=== PATIENT | male | born 1985 | race Caucasian/White ===

== ENCOUNTER 2017-07-12 08:46 | Inpatient (IN) ==
[2017-07-12] MEDS ORDERED: 0.9 % Sodium Chloride 1,000 ML IVC ONE (09:03)
[2017-07-12] MEDS ORDERED: WATER IVPB ONE (09:03)
[2017-07-12] MEDS ORDERED: PROCAINAMIDE IVPB ONE (09:03)
[2017-07-12] MEDS ORDERED: D5 IVPB ONE (09:03)
[2017-07-12 09:18] LABS: Basophils % 0.4 %; Eosinophils # 0.3 K/mcL (0.0-0.6); Eosinophils % 3.7 %; Hematocrit 52.7 % (37.5-50.1); Hemoglobin 19.1 g/dL (12.9-16.9); Immature Granulocytes % 0.1 % (0-4); Lymphocytes # 2.6 K/mcL (0.6-4.6); Lymphocytes % 28.5 %; Mean Corpuscular HGB Conc 36.2 g/dL (31.6-35.5); Mean Corpuscular Hemoglobin 31.6 pg (28.0-33.3); Mean Corpuscular Volume 87.3 fL (83.0-100.0); Mean Platelet Volume 11.1 fL (9.4-12.4); Neutrophils # 5.2 K/mcL (1.6-8.9); Platelet Count 228 K/mcL (140-400); Red Blood Count 6.04 M/mcL (4.19-5.50); Red Cell Distribution Width 12.2 % (11.5-14.5); Segmented Neutrophils % 56.3 %
--- NOTE | 2017-07-12 09:23 | Emergency Department Note ---
START Narrative - START START: I examined this patient and my medical decision-making was reviewed with the Resident Physician. I agree with the documented findings, disposition and treatment plan as described except to the extent set forth below. 31 year old male with HX of meth abuse in the past and chest pain that started at 0200 this morning that woke him up and when he tried to use the bathroom he had a near syncopal episode and then as he was walking back to bed he had a syncopal episode and landed on the bed. Patinet denies caffiene use or any recent ilnnes. We have spoke with Dr. Andrade who recommended procainamine treatment if we are concerned about an underlying WPW in addition to lopressor therapy. AFter review of the old ekg it which was NSR it doesnt appear to have a delta wave in 2016. She does not recommend amniodarone therapy at this time. IF those therapies do not help then we will start cardizem. CTA to rule out PE. We will admit to medicine.
[2017-07-12 09:24] LABS: Prothrombin Time 10.5 Seconds (9.4-12.1)
[2017-07-12 09:27] LABS: Activated Partial Thrombo Time 29.3 Seconds (26.0-36.0)
[2017-07-12 09:34] LABS: BUN/Creatinine Ratio 12 (6-26); Blood Urea Nitrogen 9 mg/dL (8-26); Calcium 9.2 mg/dL (8.6-10.8); Carbon Dioxide 21 mEq/L (19-29); Chloride 110 mEq/L (98-109); Glucose 108 mg/dL (70-99); Magnesium 2.1 mg/dL (1.6-2.6); Osmolality,Calculated 285 (280-300); Potassium 4.4 mEq/L (3.5-4.5); Sodium 138 mEq/L (136-145); eGFR For African Americans > 60 (> 60); eGFR For Non-African Americans > 60 (> 60)
[2017-07-12 09:39] LABS: D-Dimer < 215 ng/mLFEU (0-500)
--- NOTE | 2017-07-12 09:44 | Emergency Department Note ---
Disposition Clinical Impression: Atrial fibrillation Disposition: Admitted As Inpatient Condition: Good Referrals: Jasmin Zaragoza, INCUBATOR OPERATOR [Primary Care Provider] - Forms: ED Satisfaction Letter Time of Disposition: 10:25 Chest Pain HPI - General Chief Complaint: ED Chest Pain Stated Complaint: Chest pains Time Seen by Provider: 07/12/17 08:57 Source: patient Mode of arrival: ambulatory Limitations: no limitations Vital Signs Reviewed: Yes Nursing Notes Reviewed: Yes - History of Present Illness HPI Narrative: Patient presents to the ED with the chief complaint of chest pain and palpitations. Patient woke up at 2:30 this morning and went to urinate. He states that when he got done urinating. He started feeling very lightheaded like he was going to pass out and did have a syncopal episode. He woke up he was having severe palpitations and left precordial chest discomfort. States he felt short of breath, diaphoretic and nauseated. Palpitations are coming and going and his symptoms are relieved when he is not having palpitations. States he feels like he is skipping beats. No pain or swelling in his legs, nistory DVT, PE, malignancy or exogenous estrogen use. No previous history of A. fib or coronary artery disease. Does have a previous drug use, history of methamphetamine. Denies any currently Severity scale (1-10): 10 - Related Data Home Medications Medication Instructions Recorded Confirmed Pantoprazole Sodium [Protonix] 40 mg PO DAILY 07/12/17 07/12/17 Allergies Allergy/AdvReac Type Severity Reaction Status Date / Time No Known Allergies Allergy Verified 06/13/15 22:46 All systems ED: reviewed and negative except as stated. Constitutional: Denies: fever Cardiovascular: Reports: chest pain, palpitations, syncope Respiratory: Reports: dyspnea Gastrointestinal: Reports: nausea. Denies: vomiting Musculoskeletal: Denies: back pain Neurological: Denies: headache Chest Pain PMH - Past Medical History Medical history: Reports: hypertension Surgical history: Reports: other Psychiatric history: Reports: other - Social History Smoking Status: Current every day smoker Alcohol use: Reports: occasionally Drug use: Reports: methamphetamine Physical Exam - General Limitations: no limitations General appearance: alert, anxious - Head Head exam: atraumatic, normocephalic, normal inspection - Eye Eye exam: Present: normal appearance, PERRL, EOMI - ENT ENT exam: normal exam, normal oropharynx, mucous membranes moist - Neck Neck exam: Present: normal inspection, full ROM, trachea midline. Absent: tenderness - Chest Chest inspection: Present: normal inspection, symmetric chest wall rise - Respiratory Respiratory exam: Present: normal lung sounds bilaterally - Cardiovascular Cardiovascular exam: Present: tachycardia, irregular rhythm. Absent: regular rate, systolic murmur - Abdominal Exam Abdominal exam: Present: soft, Non-Tender. Absent: tenderness, distention, guarding, rebound, rigidity - Extremities Exam Extremities exam: Present: normal inspection, full ROM. Absent: tenderness, pedal edema - Expanded Lower Extremity Exam Hip/Pelvis exam: Present: pelvis stable - Neurological Exam Neurological exam: Present: alert, oriented X3 - Psychiatric Psychiatric exam: Present: anxious - Skin Skin exam: Present: warm, dry, intact, normal color Course Course Narrative: Patient presenting with chest pain, palpitations. EKG does show new onset A. fib with RVR. Previous EKG did not show any WPW. We will check labs, chest x- ray. We will try procainamide. We will also consult cards. - Reevaluation(s) Reevaluation #1: Labs are back and are unremarkable. We will give Lopressor at this time. Will admit patient for further workup. We will hold off on any further antiarrhythmics - Consultations Consultation #1: Spoke with on-call custom ski maker, Dr Andrade. She was okay with trying procainamide. States that if that did not work, she would recommend Lopressor and would not recommend amiodarone. Patient's vitals are stable, no indication for cardioversion at this time. The procainamide and Lopressor does not work, we will consider cardioversion at that time. Vital Signs Temperature 97.6 F 07/12/17 08:48 Pulse Rate 116 07/12/17 08:48 Respiratory Rate 18 07/12/17 08:48 Blood Pressure 159/79 07/12/17 08:48 O2 Sat by Pulse Oximetry 97 07/12/17 08:48 Temperature 97.6 F 07/12/17 08:48 Pulse Rate 136 07/12/17 09:16 Respiratory Rate 18 07/12/17 09:16 Blood Pressure 159/79 07/12/17 08:48 O2 Sat by Pulse Oximetry 99 07/12/17 09:16 Oxygen Delivery Oxygen Delivery Room Air Chest Pain - Medical Records Medical records reviewed: Yes I reviewed the patient's medical records. - Lab Data Lab results reviewed: Yes I reviewed the patient's lab results. Result diagrams: 07/12/17 09:07 07/12/17 09:07 Lab Results 07/12/17 07/12/17 07/12/17 Range/Units 09:07 09:07 09:07 WBC 9.3 (4.3-11.1) K/mcL RBC 6.04 H (4.19-5.50) M/mcL Hgb 19.1 H (12.9-16.9) g/dL Hct 52.7 H (37.5-50.1) % MCV 87.3 (83.0-100.0) fL MCH 31.6 (28.0-33.3) pg MCHC 36.2 H (31.6-35.5) g/dL RDW 12.2 (11.5-14.5) % Plt Count 228 (140-400) K/mcL MPV 11.1 (9.4-12.4) fL Immature Gran % 0.1 (0-4) % Seg Neutrophils % 56.3 % Lymphocytes % 28.5 % Monocytes % 11.0 % Eosinophils % 3.7 % Basophils % 0.4 % Neutrophils # 5.2 (1.6-8.9) K/mcL Lymphocytes # 2.6 (0.6-4.6) K/mcL Monocytes # 1.0 (0.0-1.3) K/mcL Eosinophils # 0.3 (0.0-0.6) K/mcL Basophils # 0.0 (0.0-0.2) K/mcL PT 10.5 (9.4-12.1) Seconds INR 1.0 APTT 29.3 (26.0-36.0) Seconds D-Dimer < 215 (0-500) ng/mLFEU Sodium 138 (136-145) mEq/L Potassium 4.4 (3.5-4.5) mEq/L Chloride 110 H (98-109) mEq/L Carbon Dioxide 21 (19-29) mEq/L BUN 9 (8-26) mg/dL Creatinine 0.77 (0.72-1.25) mg/dL Est GFR ( Amer) > 60 (> 60) Est GFR (Non-Af Amer) > 60 (> 60) BUN/Creatinine Ratio 12 (6-26) Glucose 108 H (70-99) mg/dL Calculated Osmolality 285 (280-300) Calcium 9.2 (8.6-10.8) mg/dL Magnesium 2.1 (1.6-2.6) mg/dL Troponin I (0-0.03) ng/mL B-Natriuretic Peptide (0-100) pg/mL TSH 3.855 (0.350-4.840) mcIU/mL 07/12/17 07/12/17 Range/Units 09:07 09:07 WBC (4.3-11.1) K/mcL RBC (4.19-5.50) M/mcL Hgb (12.9-16.9) g/dL Hct (37.5-50.1) % MCV (83.0-100.0) fL MCH (28.0-33.3) pg MCHC (31.6-35.5) g/dL RDW (11.5-14.5) % Plt Count (140-400) K/mcL MPV (9.4-12.4) fL Immature Gran % (0-4) % Seg Neutrophils % % Lymphocytes % % Monocytes % % Eosinophils % % Basophils % % Neutrophils # (1.6-8.9) K/mcL Lymphocytes # (0.6-4.6) K/mcL Monocytes # (0.0-1.3) K/mcL Eosinophils # (0.0-0.6) K/mcL Basophils # (0.0-0.2) K/mcL PT (9.4-12.1) Seconds INR APTT (26.0-36.0) Seconds D-Dimer (0-500) ng/mLFEU Sodium (136-145) mEq/L Potassium (3.5-4.5) mEq/L Chloride (98-109) mEq/L Carbon Dioxide (19-29) mEq/L BUN (8-26) mg/dL Creatinine (0.72-1.25) mg/dL Est GFR ( Amer) (> 60) Est GFR (Non-Af Amer) (> 60) BUN/Creatinine Ratio (6-26) Glucose (70-99) mg/dL Calculated Osmolality (280-300) Calcium (8.6-10.8) mg/dL Magnesium (1.6-2.6) mg/dL Troponin I 0.00 (0-0.03) ng/mL B-Natriuretic Peptide 28 (0-100) pg/mL TSH (0.350-4.840) mcIU/mL - Radiology Data Radiology results reviewed: Yes I reviewed the patient's radiology results. - EKG Data EKG attestation: Yes I reviewed and interpreted this EKG. EKG results narrative: A. fib with RVR, rate 126, QRS 94, QTC 387, normal axis, early re-pole, which is unchanged from previous. No sign of WPW, Brugada or prolonged QT.
[2017-07-12 09:57] LABS: Thyroid Stimulating Hormone 3.855 mcIU/mL (0.350-4.840)
[2017-07-12] MEDS ORDERED: *HR* Metoprolol 5 MG/5 ML VIAL IVP STA (10:12)
[2017-07-12] MEDS ORDERED: *HR* Metoprolol 5 MG/5 ML VIAL IVP ONE (10:48)
--- NOTE | 2017-07-12 11:29 | Cardiology Consult Note ---
<Arturo Saavedra R - Last Filed: 07/12/17 11:51> Date of Encounter: 07/12/17 Time of Encounter: 11:23 Assessment and Plan (1) Atrial fibrillation with RVR Current Visit: Yes Status: Acute Presented in A-Fib with RVR HR 130s, given IV Lopressor x 2 and Procainamide, HR 90s-120s currently. Prior baseline EKG normal. Discussed with Dr. Andrade--start Cardizem gtt. Will give IV 10mg once, gtt at 5mg/hr. Symptoms of syncope, dyspnea, chest pain, palpitations, diaphoresis, nausea-- all improved with rate control. Suspect this is PAF and his second episode--reports episode exactly like this 6- 8 months ago and he did not seek attention. Stayed in bed for 3 days until symptoms resolved. Electrolytes within normal range. Urine drug tox pending. Previous drug abuse, denies current. Denies excessive caffeine intake. Recommend checking echo to evaluate structure and function. [id number]--no anticoagulation warrranted. Denies chest pain aside from when in A-Fib. Mother from NH age 46-50. Reports snoring--outpt sleep study. Cardizem gtt, echo, continue to follow. (2) Syncope Current Visit: Yes Status: Acute Likely secondary to A-Fib RVR, as above. Qualifiers: Syncope type: unspecified Qualified Code(s): R55 - Syncope and collapse Discussion w patient/family: The assessment and plan as outlined above was discussed with the patient and/or family members who expressed understanding and agreement. All questions were answered. Thank you for involving us in the care of your patient. Please call with any questions. I will discuss all the above with Dr. Andrade and make changes as necessary. History of Present Illness Consult date: 07/12/17 Requesting physician: Dyllan Juarez Consult reason: A-Fib RVR Chief complaint: palpitations, chest pain, syncope History of present illness: Mr. Torres is a 31 year old male with PMH of bipolar per records.. Patient woke up at 2AM and went to urinate. He states that when he got done urinating he started feeling very lightheaded like he was going to pass out. Next thing he knew, he woke up on the floor. He did have a syncopal event. Once he regained consciousness he was having severe palpitations and left precordial chest pain. He states he felt short of breath, diaphoretic and nauseated. He was found to be in A-Fib RVR, rate 130s. He has been given IV lopressor and procainamide, which he reports improved his symptoms. HR curently 90s-120. Denies excessive caffeine intake or current drug use. Does have a previous drug use, history of methamphetamine and heroin use. Pt reports he had an episode exactly like this 6 -8 months ago, syncopal event with palpitations and chest pain. He did not seek medical attention and reports he laid in bed for 3 days until symptoms resolved. No personal cardiac hx but reports his mother of NH between age of 46-50. He smokes tobacco. Past Med Surg Social Fam HX - Past Medical History Psychiatric history: other - Past Surgical History Surgical History: other - Social History Smoking Status: Current every day smoker Smokeless Tobacco Status: No Alcohol use: occasionally Drug use: methamphetamine - Family History Mother Living Status: Age at : 48 Cause of : Heart attack Hx Family Cardiac Disorders: Yes Hx Family Respiratory Disorders: No Hx Family Cancer: No Hx Family GI Disorders: No Hx Family Genitourinary Disorders: No Hx Family Endocrine Disorder: No Hx Family Musculoskeletal Disorders: No Hx Family Neuromuscular Disorders: No Hx Family Neurologic Disorders: No Hx Family HEENT Disorders: No Hx Family Autoimmune Disorders: No Hx Family Reproductive Disorders: No Hx Family Psychosocial Disorders: No Hx Family Medical Disorders: No Father Living Status: Still Living Hx Family Cardiac Disorders: No Hx Family Respiratory Disorders: No Hx Family Cancer: No Hx Family GI Disorders: No Hx Family Genitourinary Disorders: No Hx Family Endocrine Disorder: No Hx Family Musculoskeletal Disorders: No Hx Family Neuromuscular Disorders: No Hx Family HEENT Disorders: No Hx Family Autoimmune Disorders: No Hx Family Reproductive Disorders: No Hx Family Psychosocial Disorders: No Hx Family Medical Disorders: No Medications and Allergies Pantoprazole Sodium [Protonix] 40 mg PO DAILY 07/12/17 [History] Diltiazem CD (24hr) [Cardizem CD] 120 mg PO DAILY #30 cap.er.24h 07/13/17 [Rx] 3 Allergy/AdvReac Type Severity Reaction Status Date / Time No Known Allergies Allergy Verified 06/13/15 22:46 All Systems Review: A 10-system review of systems was performed and is negative for pertinent findings except as documented above in the HPI. - Cardiovascular Cardiovascular: as per HPI, chest pain at rest, chest pain with exertion, diaphoresis, dyspnea at rest, dyspnea on exertion, irregular heart rhythm, lightheadedness, palpitations, rapid heart rate, syncope - Neurological Neurological: syncope Physical Examination Vital Signs, Last 4 Hours Resp BP 07/12/17 11:00 18 121/92 Vital Signs Temp Pulse Resp BP Pulse Ox 07/12/17 11:00 18 121/92 07/12/17 10:34 106 18 102/70 95 07/12/17 10:00 135 20 108/90 96 07/12/17 09:16 136 18 99 07/12/17 08:48 97.6 F 116 18 159/79 97 Intake and Output 07/11/17 07/12/17 07/12/17 23:59 07:59 15:59 Intake Total 1252 / 1252 Balance 1252 / 1252 Intake: IV Fluids 1252 / 1252 0.9 % Sodium Chloride 1,000 ML 1000 / 1000 @ 3750 mls/hr IVC .Q16M ONE Rx# :[id number] Pronestyl 1,000 MG In Dextrose 252 / 252 5% 250 ML @ 500 mls/hr IVPB ONCE ONE Rx#:[id number] Other: Weight 124.738 kg Patient Weight 07/12/17 23:59 Weight 124.738 kg General: Conversant, No Apparent Distress HEENT: Atraumatic, Normocephaly, Mucus Membranes Moist Neck: No JVD, Normal carotid pulses Cardiac: Other (irregularly irregular) Lungs: Normal Breath Sounds, No Wheeze, Rales, Rhonchi Neuro: Alert and responsive, No focal deficits noted Abdomen: Soft, Non-Tender Skin: No rashes noted on visualized skin Musculoskeletal: No Chest Wall Tenderness Extremities: No Clubbing, No Cyanosis, No Edema, Normal Pulses Results 07/12/17 09:07 07/12/17 09:07 Short CBC 07/12/17 Range/Units 09:07 WBC 9.3 (4.3-11.1) K/mcL Hgb 19.1 H (12.9-16.9) g/dL Hct 52.7 H (37.5-50.1) % Plt Count 228 (140-400) K/mcL Neutrophils # 5.2 (1.6-8.9) K/mcL BMP 07/12/17 Range/Units 09:07 Sodium 138 (136-145) mEq/L Potassium 4.4 (3.5-4.5) mEq/L Chloride 110 H (98-109) mEq/L Carbon Dioxide 21 (19-29) mEq/L BUN 9 (8-26) mg/dL Creatinine 0.77 (0.72-1.25) mg/dL Glucose 108 H (70-99) mg/dL Calcium 9.2 (8.6-10.8) mg/dL Cardiac Enzymes 07/12/17 Range/Units 09:07 Troponin I 0.00 (0-0.03) ng/mL Impressions Chest X-Ray 07/12/17 09:03 IMPRESSION: No acute cardiopulmonary disease. D/ / 07/12/2017 10:24:03 [facility]os [facility] Interpreting Provider: Juan Ontiveros MD - EKG Interpretation EKG results cardiology: personally reviewed (A-Fib RVR HR 130s.) Consult Discharge Plan - Plan Instructions: Atrial Fibrillation (GEN) Referrals: Jasmin Zaragoza, FIELD ENGINEER [Primary Care Provider] - Sheela Andrade DO [Partnered Physician] - (requested an appointment) Prescriptions: Diltiazem CD (24hr) [Cardizem CD] 120 mg PO DAILY #30 cap.er.24h <Sheela Andrade - Last Filed: 07/13/17 12:22> Date of Encounter: 07/13/17 - Attending Attestation I have personally performed a face to face evaluation on this patient. I have reviewed and agree with the care plan FIELD ENGINEER: Mr. Torres is a young 31-year-old male presenting to the emergency room in atrial fibrillation with RVR. He was given Lopressor as well as procainamide in the ER. He is substernal he started on a Cardizem drip. He has since converted to normal sinus rhythm and is feeling much better. His electrolytes are within range. He has a history of drug use - methamphetamines and heroin - but denies recent drug use. His urine toxicology came back positive for amphetamines. I discussed this with the patient - again, reports no recent drug use. Nevertheless, I asked the patient to avoid precipitants that could make his heart tachycardic. For now, I recommend low-dose aspirin (CHADSVASC 0 ) and PO Cardizem. An echo is pending. Provided echo demonstrates no concerning findings, we will anticipate Sine-Off and recommend outpatient cardiology follow-up with Dr. Ryder Rea in EP. Assessment and Plan Discussion w patient/family: The assessment and plan as outlined above was discussed with the patient and/or family members who expressed understanding and agreement. All questions were answered. Thank you for involving us in the care of your patient. Please call with any questions. History of Present Illness History of present illness: Mr. Torres is a 31 year old male All Systems Review: A 10-system review of systems was performed and is negative for pertinent findings except as documented above in the HPI. Physical Examination Vital Signs, Last 4 Hours Temp Pulse Resp BP Pulse Ox 07/13/17 11:50 97.7 F 71 16 129/80 97 Results 07/13/17 08:17 07/13/17 00:45 Lab Results 07/12/17 07/13/17 07/13/17 20:26 00:45 00:45 WBC 7.9 Hgb 17.3 H D Hct 48.8 Plt Count 194 INR APTT Sodium Potassium Chloride Carbon Dioxide BUN Creatinine Glucose Calcium Magnesium Troponin I 0.00 0.00 07/13/17 07/13/17 07/13/17 00:45 08:17 08:17 WBC 6.0 Hgb 17.0 H Hct 48.6 Plt Count 182 INR 1.0 APTT 30.7 Sodium 139 Potassium 3.7 Chloride 108 Carbon Dioxide 24 BUN 12 Creatinine 0.89 Glucose 120 H Calcium 9.1 Magnesium 2.0 Troponin I
[2017-07-12 12:27] LABS: Bilirubin,Urine Negative (Negative); Blood,Urine Negative (Negative); Clarity,Urine Clear (Clear); Color,Urine Yellow (Yellow); Glucose,Urine (UA) Normal (Normal); Ketones,Urine Negative (Negative); Leukocyte Esterase,Urine Negative (Negative); Nitrite,Urine Negative (Negative); PH,Urine 6.5 pH Units (5.0-8.0); Protein,Urine Negative (Neg-Trace); Specific Gravity,Urine 1.016 (1.010-1.025); Urobilinogen,Urine Normal (Normal)
[2017-07-12] MEDS ORDERED: Naloxone 0.4 MG/ML INJ IVP PRN (12:27)
[2017-07-12] MEDS ORDERED: Mag Hydrox/Al Hydrox/Simeth 30 ML UDC PO PRN (12:27)
[2017-07-12] MEDS ORDERED: Ondansetron ODT 4 MG TAB.RAPDIS SL PRN (12:27)
[2017-07-12] MEDS ORDERED: MOM Conc 10 ML UD.LIQ PO PRN (12:27)
--- NOTE | 2017-07-12 12:29 | Internal Med History&Physical ---
Date of Encounter: 07/12/17 Time of Encounter: 12:29 Assessment and Plan (1) Atrial fibrillation Current visit: Yes Status: Acute Pt admitted for parox a fib with RVR. Now on cardizem drip. No need for anticoagulation. Cardiology following. May need cardioversion on Friday. Echo ordered. Qualifiers: Atrial fibrillation type: paroxysmal Qualified Code(s): I48.0 - Paroxysmal atrial fibrillation (2) Syncope Current visit: Yes Status: Acute Most likely related to rapid heart rate. Follow on tele monitor for now. Orthostatics negative. Qualifiers: Syncope type: unspecified Qualified Code(s): R55 - Syncope and collapse (3) Methamphetamine abuse Current visit: No Status: Chronic Urine positive for amphetamines. (4) Tobacco abuse Current visit: Yes Status: Chronic cessation counselling. (5) Obesity (BMI 35.0-39.9 without comorbidity) Current visit: Yes Status: Chronic chronic issue Internal Medicine - H&P: HPI Chief complaint: Rapid heart rate Admitted From: Emergency Dept Plans for Post Hospital Care: Home History of present illness: Mr. Torres is a 31 year old male with hx of GERD and HTN presented to ED with rapid heart rate. Symptoms started abruptly this AM. He got up to go to bathroom and became tachycardic and dyspneic. He tried to rest and get it to resolve but it did not. He came to ED and found to be in rapid a fib. He was given procainamide and still remains in a fib therefore was admitted for further eval and treatment. Currently his only complaint is hunger. He stated he did have "a couple" of drinks last night but denies drugs. He had a prior episode of this about 6 months ago and stayed in bed 3 days till it spontaneously resolved. No prior cardiac disease. Due to rapid heart rate with syncope, he is high risk for further cardiac issues and has been admitted to inpatient status. Past Med Surg Social Fam HX - Past Medical History Medical history: hypertension Psychiatric history: other - Past Surgical History Surgical History: other - Social History Smoking Status: Current every day smoker Packs per day: 1 Smokeless Tobacco Status: No Alcohol use: occasionally Drug use: methamphetamine - Family History Mother Living Status: Age at : 48 Cause of : Heart attack Hx Family Cardiac Disorders: Yes Hx Family Respiratory Disorders: No Hx Family Cancer: No Hx Family GI Disorders: No Hx Family Genitourinary Disorders: No Hx Family Endocrine Disorder: No Hx Family Musculoskeletal Disorders: No Hx Family Neuromuscular Disorders: No Hx Family Neurologic Disorders: No Hx Family HEENT Disorders: No Hx Family Autoimmune Disorders: No Hx Family Reproductive Disorders: No Hx Family Psychosocial Disorders: No Hx Family Medical Disorders: No Father Living Status: Still Living Hx Family Cardiac Disorders: No Hx Family Respiratory Disorders: No Hx Family Cancer: No Hx Family GI Disorders: No Hx Family Genitourinary Disorders: No Hx Family Endocrine Disorder: No Hx Family Musculoskeletal Disorders: No Hx Family Neuromuscular Disorders: No Hx Family HEENT Disorders: No Hx Family Autoimmune Disorders: No Hx Family Reproductive Disorders: No Hx Family Psychosocial Disorders: No Hx Family Medical Disorders: No Internal Medicine - H&P: Meds Pantoprazole Sodium [Protonix] 40 mg PO DAILY 07/12/17 [History] 3 Allergy/AdvReac Type Severity Reaction Status Date / Time No Known Allergies Allergy Verified 06/13/15 22:46 All Systems PM: A 10-system review of systems was performed and is negative for pertinent findings except as documented above in the HPI. - Constitutional Constitutional: no chills, no fever(s), no malaise - EENT Eyes: no discharge, no loss of vision Ears: no decreased hearing Nose, mouth and throat: no dry mouth, no nasal discharge, no sore throat - Cardiovascular Cardiovascular ROS IM: dyspnea, lightheadedness, palpitations, no chest pain - Respiratory Respiratory: snoring, no cough, no wheezing - Gastrointestinal Gastrointestinal: no abdominal pain, no constipation, no diarrhea, no melena - Genitourinary Genitourinary ROS male: no difficulty urinating, no nocturia - Musculoskeletal Musculoskeletal ROS IM: no arthralgias, no myalgias - Integumentary Integumentary IM: no erythema, no rash - Neurological Neurological ROS: no convulsions, no memory loss, no vertigo - Endocrine Endocrine IM: no cold intolerance, no heat intolerance - Hematologic/Lymphatic Hematologic/Lymphatic: no easy bleeding - Allergic/Immunologic Allergic/Immunologic: no itchy eyes - Constitutional Vitals: Temp Pulse Resp BP Pulse Ox 98.3 F 70 21 118/71 95 07/12/17 11:46 07/12/17 11:46 07/12/17 11:46 07/12/17 11:46 07/12/17 11:46 General appearance: Present: A&O X 3, pleasant, answers questions appropriately - Head Head exam: Present: atraumatic, normocephalic - Eye Eye exam: Present: EOMI, PERRL, conjuntiva pink - ENT ENT exam: Present: mucous membranes moist - Neck Neck exam general surgery: Absent: lymphadenopathy, thyromegaly - Respiratory Respiratory exam: Present: CTAB. Absent: rales, rhonchi, wheezes - Cardiovascular Cardiovascular exam: Present: irregular rhythm. Absent: systolic murmur, tachycardia - GI/Abdominal GI/Abdominal exam: Present: soft. Absent: mass, tenderness - Extremities Exam Extremities exam: Present: warm. Absent: tenderness - Neurological Exam Neurological exam: Present: alert, oriented X3, no focal deficits - Skin Skin exam: Present: dry, warm. Absent: rash Internal Med - H&P Results - Labs CBC & Chem 7: 07/12/17 09:07 07/12/17 09:07 Labs: Urine 07/12/17 Range/Units 12:16 Urine Color Yellow (Yellow) Urine Clarity Clear (Clear) Urine pH 6.5 (5.0-8.0) pH Units Ur Specific S[place]y 1.016 (1.010-1.025) Urine Protein Negative (Neg-Trace) mg/dL Urine Glucose (UA) Normal (Normal) mg/dL
[2017-07-12 12:33] LABS: Amphetamine Screen,Urine Positive ng/mL (Cutoff=1000); Barbiturate Screen,Urine Negative ng/mL (Cutoff=200); Benzodiazepines Screen,Urine Negative ng/mL (Cutoff=200); Cannabinoid Screen,Urine Negative ng/mL (Cutoff = 50); Cocaine Screen,Urine Negative ng/mL (Cutoff= 300); Opiate Screen,Urine Negative ng/mL (Cutoff=300); Phencyclidine Screen,Urine Negative ng/mL (Cutoff=25)
[2017-07-12] MEDS: dilTIAZem HCl 100 MG in D5% in Water 50 ML IVC SCH (13:25)
[2017-07-12] MEDS: 0.9 % Sodium Chloride 1,000 ML IVC SCH (13:26)
[2017-07-12] MEDS: Acetaminophen 325 MG TABLET PO PRN (13:46)
[2017-07-12] MEDS: *HR* Heparin 5,000 UNIT/ML VIAL SQ SCH (21:54)
[2017-07-13 01:17] LABS: Basophils % 0.5 %; Eosinophils # 0.4 K/mcL (0.0-0.6); Eosinophils % 4.9 %; Hematocrit 48.8 % (37.5-50.1); Hemoglobin 17.3 g/dL (12.9-16.9); Immature Granulocytes % 0.3 % (0-4); Lymphocytes # 3.2 K/mcL (0.6-4.6); Lymphocytes % 40.2 %; Mean Corpuscular HGB Conc 35.5 g/dL (31.6-35.5); Mean Corpuscular Hemoglobin 31.6 pg (28.0-33.3); Mean Corpuscular Volume 89.1 fL (83.0-100.0); Monocytes # 0.7 K/mcL (0.0-1.3); Monocytes % 8.3 %; Neutrophils # 3.6 K/mcL (1.6-8.9); Platelet Count 194 K/mcL (140-400); Red Blood Count 5.48 M/mcL (4.19-5.50); Red Cell Distribution Width 12.2 % (11.5-14.5); Segmented Neutrophils % 45.8 %
[2017-07-13 01:35] LABS: BUN/Creatinine Ratio 13 (6-26); Blood Urea Nitrogen 12 mg/dL (8-26); Calcium 9.1 mg/dL (8.6-10.8); Carbon Dioxide 24 mEq/L (19-29); Chloride 108 mEq/L (98-109); Chol/HDL Ratio 5.5 (0-4.9); Cholesterol 170 mg/dL (< 200); Glucose 120 mg/dL (70-99); HDL Cholesterol 31 mg/dL (40-59); LDL Cholesterol,Calculated 71 mg/dL (0-99); Osmolality,Calculated 289 (280-300); Potassium 3.7 mEq/L (3.5-4.5); Sodium 139 mEq/L (136-145); Triglycerides 340 mg/dL (< 150); eGFR For African Americans > 60 (> 60); eGFR For Non-African Americans > 60 (> 60)
[2017-07-13] MEDS: Acetaminophen 325 MG TABLET PO PRN (03:07)
[2017-07-13] MEDS: 0.9 % Sodium Chloride 1,000 ML IVC SCH (03:08)
[2017-07-13] MEDS: *HR* Heparin 5,000 UNIT/ML VIAL SQ SCH (06:09)
[2017-07-13] MEDS ORDERED: *HR* Heparin 5,000 UNIT/ML VIAL IVP ONE (08:09)
[2017-07-13] MEDS ORDERED: *HR* Heparin 5,000 UNIT/ML VIAL IVP PRN ×2 (08:09)
[2017-07-13] MEDS ORDERED: Heparin 25,000 UNIT/500 ML D5W 25,000 UNIT/500 ML MLS IVC SCH (08:15)
[2017-07-13 08:37] LABS: Hematocrit 48.6 % (37.5-50.1); Mean Corpuscular Hemoglobin 31.4 pg (28.0-33.3); Mean Corpuscular Volume 89.7 fL (83.0-100.0); Mean Platelet Volume 10.8 fL (9.4-12.4); Platelet Count 182 K/mcL (140-400); Red Blood Count 5.42 M/mcL (4.19-5.50); Red Cell Distribution Width 12.5 % (11.5-14.5)
[2017-07-13 08:49] LABS: Activated Partial Thrombo Time 30.7 Seconds (26.0-36.0)
[2017-07-13] MEDS ORDERED: Diltiazem CD (24hr) 120 MG CAPSULE PO SCH (09:45)
[2017-07-13] MEDS: dilTIAZem HCl 100 MG in D5% in Water 50 ML IVC SCH (10:36)
[2017-07-13 11:51] VITALS: BP 129/80
--- NOTE | 2017-07-13 11:54 | Discharge Summary ---
Date of Encounter: 07/13/17 Time of Encounter: 10:30 - Discharge Diagnosis (1) Atrial fibrillation Priority: Primary Status: Acute Qualifiers: Atrial fibrillation type: paroxysmal Qualified Code(s): I48.0 - Paroxysmal atrial fibrillation (2) Syncope Priority: Secondary Status: Acute Qualifiers: Syncope type: unspecified Qualified Code(s): R55 - Syncope and collapse (3) Methamphetamine abuse Priority: Secondary Status: Chronic (4) Tobacco abuse Priority: Secondary Status: Chronic (5) Obesity (BMI 35.0-39.9 without comorbidity) Priority: Secondary Status: Chronic - Discharge Medications Prescriptions: Diltiazem CD (24hr) [Cardizem CD] 120 mg PO DAILY #30 cap.er.24h Home Medications: Pantoprazole Sodium [Protonix] 40 mg PO DAILY 07/12/17 [History] Diltiazem CD (24hr) [Cardizem CD] 120 mg PO DAILY #30 cap.er.24h 07/13/17 [Rx] Allergies/Adverse Reactions: 3 Allergy/AdvReac Type Severity Reaction Status Date / Time No Known Allergies Allergy Verified 06/13/15 22:46 Procedures/tests Complete & Pending: Procedures Performed prior 72 hours Category Date Time Status Head CT without Contrast [CT head/brain wo con] [CT] Cat Scan 07/12/17 22:20 Completed Stat - Notes to Outpatient Provider Will need follow up of hemoglobin as outpatient. Date of admission: 07/12/17 18:18 Primary care physician: Jasmin Zaragoza CNP Consults: 07/13/17 07:07 Consult to Cardiology [CONS] Routine Comment: Consulting Provider: Cardiology Yissel Reason for Consult: A-Fib, per hospitalist Call Completed: Yes Discharging clinician: Olu Smith Anticipated date of discharge: 07/13/17 - Patient Status Disposition: Home, Self-Care Condition: Good Functional capacity at discharge: independent ambulation Overall status at discharge: patient is back to baseline - Discharge Instructions Instructions: Atrial Fibrillation (GEN) Follow Up With: Jasmin Zaragoza CNP [Primary Care Provider] - Sheela Andrade DO [Partnered Physician] - (requested an appointment) - Diet and Activity Activity: resume usual activities as tolerated Diet: low salt diet Hospital course: Mr. Torres is a 31 year old male with hx of GERD, reported HTN and amphetamine use presented to ED with complaints of syncope and rapid heartrate. In ED he was evaluated and markedly tachycardic. He was given Procainamide without resolution and was in a fib with RVR. He was admitted for further evaluation and treatment. Mr Torres was admitted to [facility]. He was placed on IV Cardizem drip for rate control He was given IV fluids as well since his hemoglobin was 19K. This decreased to 17K overnight with fluids. His UDS was positive for amphetamines and patient denied use. He admitted to ETOH the night before admission. Overnight on the he converted to NSR. Cardizem drip has been stopped and he was placed on oral Cardizem. Echo was performed before discharge. He was counselled in regards to smoking and amphetamines. On 07/13 he was afebrile with stable vitals. At that time he was ready for discharge home. Pt had initially been placed on admission as inpatient status with anticipated stay greater than 2 midnights. There was plan to pursue cardioversion on Friday if he did not spontaneously convert and he was maintained on IV Cardizem drip. As he spontaneously converted he is ready for discharge earlier than anticipated and will be discharged today. - Time Spent with Patient Total time spent providing and/or coordinating discharge services: 41min - Constitutional Vitals: Temp Pulse Resp BP Pulse Ox 98.0 F 78 20 124/71 95 07/13/17 07:03 07/13/17 07:03 07/13/17 07:03 07/13/17 07:03 07/13/17 07:03 General appearance: Present: A&O X 3, pleasant, answers questions appropriately - Head Head exam: Present: atraumatic, normocephalic - Eye Eye exam: Present: EOMI, conjuntiva pink - ENT ENT exam: Present: mucous membranes moist - Respiratory Respiratory exam: Present: CTAB. Absent: rhonchi, wheezes - Cardiovascular Cardiovascular exam: Present: RRR. Absent: tachycardia - GI/Abdominal GI/Abdominal exam: Present: soft. Absent: tenderness - Extremities Exam Extremities exam: Present: warm. Absent: tenderness - Neurological Exam Neurological exam: Present: alert, oriented X3, no focal deficits - Skin Skin exam: Present: dry, warm. Absent: rash
--- NOTE | 2017-07-13 13:43 | Event Note ---
Date of Encounter: 07/13/17 Time of Encounter: 13:42 - Cardiology Event Note Echo. Impressions: LVEF 50%. Low normal LV systolic function with normal wall motion. Normal left ventricular diastolic function. Normal right ventricular structure and function. No significant valvular dysfunction. No pulmonary hypertension. Cardiology signing off. Reconsult PRN. Follow-up as outpt, will coordinate.
--- NOTE | 2017-07-13 17:51 | Electrocardiograph Report ---
[place] [id number] Test Date: 2017-07-12 Pat Name: Ayaan Torres Department: 104 Room: 3B34 Gender: M [employer]: : 1985 Requested By: Flori Cobian Order Number: [id number] Reading MD: Sheela Andrade Measurements Intervals [place] Rate: 126 P: GA: 0 QRS: 9 QRSD: 94 T: 44 QT: 312 QTc: 387 Interpretive Statements ATRIAL FIBRILLATION WITH RAPID VENTRICULAR RESPONSE ST ELEVATION, PROBABLY EARLY REPOLARIZATION [ST ELEVATION WITH NORMALLY INFLECTED T WAVE] ABNORMAL RHYTHM ECG Electronically Signed On 07-13-2017 17:50:37 EST by Sheela Andrade
== END 2017-07-13 13:55 | disposition home or self-care (01) | DRG 310 ==
LOC: 3BNU 08:46 → EMEROO 08:46 → 3BNU 11:00
PROVIDERS: ADMIT Internal Medicine; ATTEND Registered Nurse

== ENCOUNTER 2017-09-04 18:36 | Observation (INO) ==
[2017-09-04] MEDS ORDERED: *HR* Metoprolol 5 MG/5 ML VIAL IVP ONE (18:56)
[2017-09-04] MEDS ORDERED: 0.9 % Sodium Chloride 1,000 ML IVC ONE (18:56)
[2017-09-04 19:31] LABS: Basophils % 0.4 %; Eosinophils # 0.4 K/mcL (0.0-0.6); Eosinophils % 4.6 %; Hematocrit 50.2 % (37.5-50.1); Immature Granulocytes % 0.1 % (0-4); Lymphocytes # 2.8 K/mcL (0.6-4.6); Lymphocytes % 33.2 %; Mean Corpuscular HGB Conc 35.9 g/dL (31.6-35.5); Mean Corpuscular Hemoglobin 31.5 pg (28.0-33.3); Mean Corpuscular Volume 87.9 fL (83.0-100.0); Monocytes # 0.5 K/mcL (0.0-1.3); Neutrophils # 4.6 K/mcL (1.6-8.9); Platelet Count 217 K/mcL (140-400); Red Blood Count 5.71 M/mcL (4.19-5.50); Red Cell Distribution Width 12.6 % (11.5-14.5); Segmented Neutrophils % 55.7 %
--- NOTE | 2017-09-04 19:35 | Emergency Department Note ---
Disposition Clinical Impression: Atrial fibrillation with RVR Syncope Qualifiers: Syncope type: unspecified Qualified Code(s): R55 - Syncope and collapse Disposition: Admitted As Inpatient Condition: Fair Time of Disposition: 21:20 Arrhythmia/Palpitations HPI - General Chief Complaint: ED Syncope Stated Complaint: Syncope, Irregular Heartbeat Time Seen by Provider: 09/04/17 18:56 Source: patient Limitations: no limitations Nursing Notes Reviewed: Yes Vital Signs Reviewed: Yes - History of Present Illness HPI Narrative: 31-year-old male who had acute onset of atrial fibrillation and syncope. Patient states that his heart started racing irregularly. This is similar to the last time that he had A. fib. He fell down and passed out in his bathroom, he scraped his left leg he also fell and struck his right rib cage. He has passed out landing on the floor for an and no amount of time he felt his heart racing. He now reports chest pain pain is 6 out of 10 and his heart feels regular, the patient states that his pain is crampy, this feels like the last time that he had A. fib 2 months ago he was admitted to the hospital but he lost insurance and is not able to follow up with physician. Patient denies recent fever or chills, denies productive cough, denies history of year blood clots denies lower extremity swelling. Pt Subjective Complaint: rapid heart beat, atrial fibrillation Severity: mild Arrhythmia History: atrial fibrillation Associated symptoms: Reports: chest pain. Denies: shortness of breath, syncope , nausea, diaphoresis, cough - Related Data Home Medications Medication Instructions Recorded Confirmed Pantoprazole Sodium [Protonix] 40 mg PO DAILY 07/12/17 07/12/17 Previous Rx's Medication Instructions Recorded Diltiazem CD (24hr) [Cardizem CD] 120 mg PO DAILY #30 cap.er.24h 07/13/17 Allergies Allergy/AdvReac Type Severity Reaction Status Date / Time No Known Allergies Allergy Verified 06/13/15 22:46 All systems ED: reviewed and negative except as stated. Review of Systems: As Per HPI Constitutional: Denies: fever, chills Eyes: Denies: eye pain ENT ED: Denies: ear pain Cardiovascular: Reports: chest pain, palpitations. Denies: dyspnea on exertion Respiratory: Denies: cough, dyspnea Gastrointestinal: Denies: abdominal pain Genitourinary: Denies: urgency Musculoskeletal: Denies: back pain Integumentary: Denies: rash Past Medical History - Past Medical History Attestation: Yes The following information was validated with the patient. Source: patient Medical history: Reports: atrial fibrillation, hypertension Surgical history: Reports: other Psychiatric history: Reports: other - Social History Smoking Status: Current every day smoker Smokeless Tobacco Status: No Alcohol use: Reports: occasionally Drug use: Reports: methamphetamine Physical Exam Constitutional: alert and oriented, in NAD, vital signs reviewed irregularly irregular tachycardia Neck: normal inspection, neck is supple, no JVD Resp: normal chest inspection, mild tenderness to palpation in the right rib cage. CTA bilaterally, no resp distress, no wheezes/rales/rhonchi CV: Irregularly irregular rhythm no murmurs/gallops/rubs, S1 and S2 heard Extremity: +2 bilateral radial and posterial tibial pulses, no pedal edema GI: normal inspection, Soft, NTND, no peritoneal signs, no palpable abdominal aortic aneurysm FAST exam negative for free intra-abdominal fluid and right upper quadrant left upper quadrant suprapubic and subxiphoid no evidence pericardial effusion Back: normal inspection, no tenderness to palpation Neuro: A&O3, no gross motor or sensory deficits bilaterally MSK: normal inspection, bilateral UE and LE with normal ROM Skin: No rashes, skin warm, dry, intact - General Limitations: no limitations General appearance: alert Course Course Narrative: 31-year-old male with second episode of atrial fibrillation, last time on records reviewed shows that he was controlled with Cardizem, we will initially try fluids and metoprolol bolus, check basic lab work troponin EKG shows no skin changes but A. fib with a rate of 128. - Reevaluation(s) Reevaluation #1: Patient is now rate controlled in the 80s but he still appears irregular on the monitor will hold the Cardizem bolus at this time, still urine fluids plan is for admission hospitalist for medication optimization. Reevaluation #2: [facility] accepting patient HD stable Cardizem gtt held. Time: 21:21 - Consultations Consultation #1: Spoke with Dr Rea they will consult on care Time: 21:20 Vital Signs Temperature 98.6 F 09/04/17 18:39 Pulse Rate 128 09/04/17 18:39 Respiratory Rate 16 09/04/17 18:39 Blood Pressure 152/97 09/04/17 18:39 O2 Sat by Pulse Oximetry 97 09/04/17 18:39 Temperature 98.6 F 09/04/17 18:39 Pulse Rate 95 09/04/17 21:54 Respiratory Rate 18 09/04/17 22:33 Blood Pressure 113/69 09/04/17 22:33 O2 Sat by Pulse Oximetry 98 09/04/17 21:54 Oxygen Delivery Oxygen Delivery Room Air Arrhythmia/Palpitations - Differential Diagnosis Differential Diagnosis: Likely: sinus tachycardia, artial arrhythmia, supraventricular tachycardia, ventricular tachycardia, WPW - Medical Records Medical records reviewed: Yes I reviewed the patient's medical records. - Lab Data Lab results reviewed: Yes I reviewed the patient's lab results. Result diagrams: 09/04/17 19:15 09/04/17 19:15 Lab Results 09/04/17 09/04/17 09/04/17 Range/Units 19:15 19:15 19:15 WBC 8.3 (4.3-11.1) K/mcL RBC 5.71 H (4.19-5.50) M/mcL Hgb 18.0 H (12.9-16.9) g/dL Hct 50.2 H (37.5-50.1) % MCV 87.9 (83.0-100.0) fL MCH 31.5 (28.0-33.3) pg MCHC 35.9 H (31.6-35.5) g/dL RDW 12.6 (11.5-14.5) % Plt Count 217 (140-400) K/mcL MPV 11.0 (9.4-12.4) fL Immature Gran % 0.1 (0-4) % Seg Neutrophils % 55.7 % Lymphocytes % 33.2 % Monocytes % 6.0 % Eosinophils % 4.6 % Basophils % 0.4 % Neutrophils # 4.6 (1.6-8.9) K/mcL Lymphocytes # 2.8 (0.6-4.6) K/mcL Monocytes # 0.5 (0.0-1.3) K/mcL Eosinophils # 0.4 (0.0-0.6) K/mcL Basophils # 0.0 (0.0-0.2) K/mcL PT (9.4-12.1) Seconds INR APTT (26.0-36.0) Seconds Sodium 140 (136-145) mEq/L Potassium 3.7 (3.5-5.1) mEq/L Chloride 109 H (98-107) mEq/L Carbon Dioxide 25 (23-29) mEq/L BUN 10 (6-20) mg/dL Creatinine 0.79 (0.70-1.30) mg/dL Est GFR ( Amer) > 60 (> 60) Est GFR (Non-Af Amer) > 60 (> 60) BUN/Creatinine Ratio 13 (6-26) Glucose 134 H (70-105) mg/dL Calculated Osmolality 291 (280-300) Calcium 9.0 (8.6-10.3) mg/dL Magnesium 2.0 (1.6-2.6) mg/dL Troponin I < 0.03 (< 0.04) ng/mL TSH 1.695 (0.340-5.600) mcIU/mL Urine Color (Yellow) Urine Clarity (Clear) Urine pH (5.0-8.0) pH Units Ur Specific [place] (1.010-1.025) Urine Protein (Neg-Trace) mg/dL Urine Glucose (UA) (Normal) mg/dL Urine Ketones (Negative) mg/dL Urine Blood (Negative) Urine Nitrite (Negative) Urine Bilirubin (Negative) Urine Urobilinogen (Normal) mg/dL Ur Leukocyte Esterase (Negative) Ur Culture Indicated? (NO) 09/04/17 09/04/17 Range/Units 19:15 20:23 WBC (4.3-11.1) K/mcL RBC (4.19-5.50) M/mcL Hgb (12.9-16.9) g/dL Hct (37.5-50.1) % MCV (83.0-100.0) fL MCH (28.0-33.3) pg MCHC (31.6-35.5) g/dL RDW (11.5-14.5) % Plt Count (140-400) K/mcL MPV (9.4-12.4) fL Immature Gran % (0-4) % Seg Neutrophils % % Lymphocytes % % Monocytes % % Eosinophils % % Basophils % % Neutrophils # (1.6-8.9) K/mcL Lymphocytes # (0.6-4.6) K/mcL Monocytes # (0.0-1.3) K/mcL Eosinophils # (0.0-0.6) K/mcL Basophils # (0.0-0.2) K/mcL PT 11.0 (9.4-12.1) Seconds INR 1.0 APTT 28.0 (26.0-36.0) Seconds Sodium (136-145) mEq/L Potassium (3.5-5.1) mEq/L Chloride (98-107) mEq/L Carbon Dioxide (23-29) mEq/L BUN (6-20) mg/dL Creatinine (0.70-1.30) mg/dL Est GFR ( Amer) (> 60) Est GFR (Non-Af Amer) (> 60) BUN/Creatinine Ratio (6-26) Glucose (70-105) mg/dL Calculated Osmolality (280-300) Calcium (8.6-10.3) mg/dL Magnesium (1.6-2.6) mg/dL Troponin I (< 0.04) ng/mL TSH (0.340-5.600) mcIU/mL Urine Color Yellow (Yellow) Urine Clarity Clear (Clear) Urine pH 7.0 (5.0-8.0) pH Units Ur Specific [place] 1.022 (1.010-1.025) Urine Protein Negative (Neg-Trace) mg/dL Urine Glucose (UA) Normal (Normal) mg/dL Urine Ketones Negative (Negative) mg/dL Urine Blood Negative (Negative) Urine Nitrite Negative (Negative) Urine Bilirubin Negative (Negative) Urine Urobilinogen Normal (Normal) mg/dL Ur Leukocyte Esterase Negative (Negative) Ur Culture Indicated? NO (NO) - Radiology Data Radiology results reviewed: Yes I reviewed the patient's radiology results. Chest X-Ray 09/04/17 18:44 IMPRESSION: No acute cardiopulmonary disease. D/ / 09/04/2017 19:03:49 Amy Qureshi MD / antonia Interpreting Provider: Amy Qureshi MD Head CT 09/04/17 19:06 IMPRESSION: No acute intracranial abnormality. D/ / Joellen Beal Cha, MD / Joellen Beal Cha, MD Interpreting Provider: Joellen Beal Cha, MD Ribs X-Ray 09/04/17 19:07 IMPRESSION: No acute osseous injury is identified. Metallic densities are noted. D/ / Lowell Klukarni MD / Lowell Kulkarni MD Interpreting Provider: Lowell Kulkarni MD - EKG Data EKG attestation: Yes I reviewed and interpreted this EKG. Rhythm: A.Fib (Atrial fibrillation rate of 128 QRS 92 QTc 358 no evidence of ischemic changes, irregularly irregular rhythm.) Attestation Statement - Attestation Attestation: I, Ryder Cobian, examined this patient and my medical decision-making was reviewed with the SPRINKLER FITTER/PA/Advanced Practice Nurse/Resident Physician. I agree with the documented findings, disposition and treatment plan as described except to the extent set forth below. 31-year-old male presents emergency department after syncopal episode and with palpitations. Patient has a history of a defibrillation with a rapid ventricular rate that presented similarly in the past. Patient was admitted for several days however he cardioverted with Cardizem alone. He does not have follow-up with cardiology since that time. Today the patient woke from a nap, was urinating and felt sudden palpitations and weakness which caused him to syncopized. Patient hit his head, his millan on various structures in the bathroom. Patient now has a mild headache however he has not vomited. EKG showed A. fib with RVR. Patient was given Cardizem emergency department with significant improvement of his heart rate. Heparin was started in emergency department and he will be admitted to the hospital for further care and evaluation. CHADS VASC = 0
[2017-09-04 19:59] LABS: BUN/Creatinine Ratio 13 (6-26); Blood Urea Nitrogen 10 mg/dL (6-20); Carbon Dioxide 25 mEq/L (23-29); Chloride 109 mEq/L (98-107); Glucose 134 mg/dL (70-105); Osmolality,Calculated 291 (280-300); Potassium 3.7 mEq/L (3.5-5.1); Sodium 140 mEq/L (136-145); eGFR For African Americans > 60 (> 60); eGFR For Non-African Americans > 60 (> 60)
[2017-09-04 20:07] LABS: Thyroid Stimulating Hormone 1.695 mcIU/mL (0.340-5.600)
[2017-09-04] MEDS ORDERED: 0.9 % Sodium Chloride 500 ML IVC ONE (20:20)
[2017-09-04 20:34] LABS: Bilirubin,Urine Negative (Negative); Blood,Urine Negative (Negative); Clarity,Urine Clear (Clear); Color,Urine Yellow (Yellow); Glucose,Urine (UA) Normal (Normal); Ketones,Urine Negative (Negative); Leukocyte Esterase,Urine Negative (Negative); Nitrite,Urine Negative (Negative); Protein,Urine Negative (Neg-Trace); Specific Gravity,Urine 1.022 (1.010-1.025); Urobilinogen,Urine Normal (Normal)
[2017-09-04] MEDS ORDERED: Acetaminophen 325 MG TABLET PO PRN (21:59)
[2017-09-04] MEDS ORDERED: Nitroglycerin 0.4 MG TAB.SUBL SL PRN (21:59)
[2017-09-04] MEDS ORDERED: Ondansetron 4 MG/2 ML VIAL IVP PRN (22:01)
[2017-09-04] MEDS ORDERED: Ketorolac 30 MG/ML VIAL IVP PRN (22:01)
[2017-09-04] MEDS ORDERED: Naloxone 0.4 MG/ML INJ IVP PRN (22:01)
--- NOTE | 2017-09-04 22:05 | Internal Med History&Physical ---
Date of Encounter: 09/04/17 Time of Encounter: 22:02 Assessment and Plan (1) Atrial fibrillation with RVR Current visit: Yes Status: Acute Syncopal episode secondary to A. fib with RVR Continue Cardizem drip Cardiology consult in the morning Fall precautions No anticoagulation needed due to [id number] score of 0 Omeprazole for GI prophylaxis, and Lovenox for DVT prophylaxis. The patient will be admitted for observation. Full code. Time spent on this admission 40 minutes. (2) Polycythemia Current visit: Yes Status: Acute Likely secondary to tobacco (3) Methamphetamine abuse Current visit: No Status: Chronic (4) Bipolar disorder Current visit: No Status: Acute Qualifiers: Active/Remission status: currently active Current bipolar episode type: mixed Psychotic features: with psychotic features Qualified Code(s): F31.64 - Bipolar disorder, current episode mixed, severe, with psychotic features (5) Syncope Current visit: Yes Status: Acute Qualifiers: Syncope type: unspecified Qualified Code(s): R55 - Syncope and collapse (6) Tobacco abuse Current visit: No Status: Chronic Smoking cessation counseling given for 5 minutes, nicotine patch Internal Medicine - H&P: HPI Chief complaint: Syncopal episode Admitted From: Emergency Dept History of present illness: Mr. Torres is a 31 year old male with a past medical history of, tobacco use, methamphetamine use, GERD, prior syncopal episode due to atrial fibrillation with rapid ventricular response. He was discharged from this hospital on 2016 where he had a similar event. Back then the patient was discharged on Cardizem but unfortunately he was not able to afford it as he lost his insurance. Since then, he has been feeling fine up until 3 days ago when he experienced some elevated heart rate. Admitted today at 1:30 PM after urinating , he passed out in the heat his head and his right rib cage. Also his corrupt his left knee and does not know for how long he was out. She woke up in sweat complaining of right-sided chest pain 6 out of 10 in intensity and palpitations. Hemoglobin is 18 hematocrit 50.[address] scan of the head did not show any intracranial hemorrhage, chest x-ray is unremarkable. The ER physician spoke with Dr. Rea who recommended admission. He was started on a Cardizem drip and was given a dose of metoprolol IV. His heart rate was 120, his initial blood pressure was 152/97 and dropped momentarily down to 99/77 and normalized afterwards. Currently he is asymptomatic. Mentions that he drank 2 shots of liquid this morning Past Med Surg Social Fam HX - Past Medical History Medical history: atrial fibrillation (Paroxysmal, Not on anticoagulation), GERD , hypertension, other (Tobacco use,syncope, bipolar disorder, methamphetamine use, obesity ) Psychiatric history: other - Past Surgical History Surgical History: no surgical history (Echocardiogram showed ejection fraction of 50% ), other - Social History Smoking Status: Current every day smoker Packs per day: One pack per day Smokeless Tobacco Status: No Alcohol use: occasionally Drug use: methamphetamine - Family History Mother Living Status: Hx Family Cardiac Disorders: Yes Hx Family Respiratory Disorders: No Hx Family Cancer: No Hx Family GI Disorders: No Hx Family Endocrine Disorder: No Hx Family Neuromuscular Disorders: No Hx Family Neurologic Disorders: No Hx Family HEENT Disorders: No Hx Family Autoimmune Disorders: No Father Living Status: Still Living Hx Family Cardiac Disorders: No Hx Family Respiratory Disorders: No Hx Family Cancer: No Hx Family GI Disorders: No Hx Family Endocrine Disorder: No Hx Family Neuromuscular Disorders: No Hx Family HEENT Disorders: No Hx Family Autoimmune Disorders: No - Additional Family History Additional family history: Mother with myocardial infarction in her 40s Internal Medicine - H&P: Meds Pantoprazole Sodium [Protonix] 40 mg PO DAILY 07/12/17 [History] Diltiazem CD (24hr) [Cardizem CD] 120 mg PO DAILY #30 cap.er.24h 07/13/17 [Rx] 3 Allergy/AdvReac Type Severity Reaction Status Date / Time No Known Allergies Allergy Verified 06/13/15 22:46 All Systems PM: A 10-system review of systems was performed and is negative for pertinent findings except as documented above in the HPI. Review of systems: Chest pain, other systems out of the 10 reviewed were negative - Constitutional Vitals: Temp Pulse Resp BP Pulse Ox 98.6 F 95 16 113/69 98 09/04/17 18:39 09/04/17 21:54 09/04/17 21:06 09/04/17 21:54 09/04/17 21:54 General appearance: Present: A&O X 3 - Head Head exam: Present: atraumatic, normocephalic - Eye Eye exam: Present: PERRL, conjuntiva pink, sclera anicteric Pupils: Present: PERRL - Neck Neck exam general surgery: Present: supple, trachea midline. Absent: lymphadenopathy - Respiratory Respiratory exam: Present: CTAB. Absent: accessory muscle use, rales, rhonchi, wheezes - Cardiovascular Cardiovascular exam: Present: irregular rhythm, RRR, +S1, +S2. Absent: diastolic murmur, gallop, rubs, systolic murmur - GI/Abdominal GI/Abdominal exam: Present: normal bowel sounds, soft, no peritoneal signs. Absent: distended, tenderness - Extremities Exam Extremities exam: Present: warm, radial pulses palpable and symmetrical. Absent : calf tenderness, cyanotic, pedal edema - Neurological Exam Neurological exam: Present: CN II-XII intact, oriented X3, no focal deficits. Absent: pronater drift, facial droop, speech deficit - Skin Skin exam: Present: dry, intact Internal Med - H&P Results - Labs CBC & Chem 7: 09/04/17 19:15 09/04/17 19:15 Labs: Short CBC 09/04/17 Range/Units 19:15 WBC 8.3 (4.3-11.1) K/mcL Hgb 18.0 H (12.9-16.9) g/dL Hct 50.2 H (37.5-50.1) % Plt Count 217 (140-400) K/mcL Neutrophils # 4.6 (1.6-8.9) K/mcL BMP 09/04/17 19:15 Sodium 140 Potassium 3.7 Chloride 109 H Carbon Dioxide 25 BUN 10 Creatinine 0.79 Glucose 134 H Calcium 9.0 Cardiac Enzymes 09/04/17 Range/Units 19:15 Troponin I < 0.03 (< 0.04) ng/mL Urine 09/04/17 Range/Units 20:23 Urine Color Yellow (Yellow) Urine Clarity Clear (Clear) Urine pH 7.0 (5.0-8.0) pH Units Ur Specific [place] 1.022 (1.010-1.025) Urine Protein Negative (Neg-Trace) mg/dL Urine Glucose (UA) Normal (Normal) mg/dL - Impressions ITS Impressions Chest X-Ray 09/04/17 18:44 IMPRESSION: No acute cardiopulmonary disease. D/ / 09/04/2017 19:03:49 Amy Qureshi MD / antonia Interpreting Provider: Amy Qureshi MD Head CT 09/04/17 19:06 IMPRESSION: No acute intracranial abnormality. D/ / Joellen Beal Cha, MD / Joellen Beal Cha, MD Interpreting Provider: Joellen Beal Cha, MD Ribs X-Ray 09/04/17 19:07 IMPRESSION: No acute osseous injury is identified. Metallic densities are noted. D/ / Lowell Kulkarni MD / Lowell Kulkarni MD Interpreting Provider: Lowell Kulkarni MD
[2017-09-05] MEDS: Nicotine 21 MG PATCH.TD24 TD SCH ×2 (00:03→08:53)
[2017-09-05] MEDS: *HR* Enoxaparin 40 MG/0.4 ML SYRINGE SQ SCH ×2 (00:04→06:58)
[2017-09-05 05:50] LABS: Hematocrit 46.7 % (37.5-50.1); Mean Corpuscular HGB Conc 34.7 g/dL (31.6-35.5); Mean Corpuscular Hemoglobin 31.1 pg (28.0-33.3); Mean Corpuscular Volume 89.6 fL (83.0-100.0); Mean Platelet Volume 10.7 fL (9.4-12.4); Platelet Count 186 K/mcL (140-400); Red Blood Count 5.21 M/mcL (4.19-5.50); Red Cell Distribution Width 13.1 % (11.5-14.5)
[2017-09-05 05:53] LABS: Hemoglobin 16.2 g/dL (12.9-16.9)
[2017-09-05 06:03] LABS: BUN/Creatinine Ratio 11 (6-26); Blood Urea Nitrogen 9 mg/dL (6-20); Calcium 8.5 mg/dL (8.6-10.3); Carbon Dioxide 28 mEq/L (23-29); Chloride 111 mEq/L (98-107); Chol/HDL Ratio 4.4 (0-4.9); Cholesterol 157 mg/dL (< 200); Glucose 100 mg/dL (70-105); HDL Cholesterol 36 mg/dL (40-59); LDL Cholesterol,Calculated 83 mg/dL (0-99); Osmolality,Calculated 287 (280-300); Potassium 3.8 mEq/L (3.5-5.1); Sodium 139 mEq/L (136-145); Triglycerides 188 mg/dL (< 150); eGFR For African Americans > 60 (> 60); eGFR For Non-African Americans > 60 (> 60)
--- NOTE | 2017-09-05 10:42 | Cardiology Consult Note ---
<Hung Keene - Last Filed: 09/05/17 13:55> Date of Encounter: 09/05/17 Time of Encounter: 10:30 Assessment and Plan (1) Atrial fibrillation with RVR Status: Acute Patient presented to the hospital with palpitations and an elevated heart rate. -Pulse of 128 on admission. Had similar complaints in June. -Was discharged from the hospital on 07/13/17 on Cardizem; was unable to fill due to losing his insurance. -Patient's heart rate decreased after the administration of 5 mg Lopressor and after starting a Cardizem drip at 5 mg per hour. -Heart rate is currently well controlled at 80 bpm. -[id number] score of 0. Plan: -Cardizem 5 mg per hour. -Continuous cardiac monitoring. -Lovenox 40 mg subcutaneous 0600 for DVT prophylaxis. -Will order tox screen due to history of amphetamine use. -If negative, will obtain CTA; r/o structural cardiac defects. -Start ASA 81 mg. -Patient will likely require a 30 day event monitor at discharge. Discussion w patient/family: The assessment and plan as outlined above was discussed with the patient and/or family members who expressed understanding and agreement. All questions were answered. Thank you for involving us in the care of your patient. Please call with any questions. History of Present Illness Consult date: 09/05/17 Chief complaint: palpitations History of present illness: Mr. Torres is a 31 year old male with a past medical history of tobacco use, methamphetamine use, GERD, prior syncopal episode due to atrial fibrillation with RVR who presented to the emergency department with a chief complaint of palpitations, syncope, and chest pain. Patient had a similar event previously; was discharged from hospital on 07/13/17 when he had a similar event. Patient was discharged on Cardizem; was not able to afford it due to losing insurance. Patient reported that while he was urinating, fell down and passed out his bathroom. He scraped his left leg and struck his right rib cage. Patient reported feeling his heart racing at that time. He also complained of chest pain rated 6 out of 10 described as a cramp-like pain. Patient reported that he was unable to follow-up with a physician after his previous discharge. Upon arrival to hospital, patient had an elevated heart rate at 120 bpm. The pressure was elevated at 152/97. All other vital signs were within normal limits. Patient was initially treated with IV fluids and metoprolol bolus. Cardizem drip was started shortly after at 5 mg per hour. Patient's heart rate subsequently improved. EKG demonstrated the presence of atrial fibrillation with rapid ventricular rate. Patient was also started on heparin in the emergency department. [id number] score of 0. Patient was started on Lovenox for DVT prophylaxis. Patient was seen and examined at bedside this morning. Patient denies any complaints this morning. States that he has been asymptomatic throughout his stay in the hospital. Patient denies the use of stimulants or excessive caffeine. Does admit to smoking one pack per day for the last 5 years. Patient is resting comfortably in bed and has no complaints at this time. Past Med Surg Social Fam HX - Past Medical History Medical history: atrial fibrillation, hypertension Psychiatric history: other - Past Surgical History Surgical History: other - Social History Smoking Status: Current every day smoker Packs per day: One pack per day Smokeless Tobacco Status: No Alcohol use: occasionally Drug use: methamphetamine - Family History Mother Living Status: Hx Family Cardiac Disorders: Yes Hx Family Respiratory Disorders: No Hx Family Cancer: No Hx Family GI Disorders: No Hx Family Endocrine Disorder: No Hx Family Neuromuscular Disorders: No Hx Family Neurologic Disorders: No Hx Family HEENT Disorders: No Hx Family Autoimmune Disorders: No Father Living Status: Still Living Hx Family Cardiac Disorders: No Hx Family Respiratory Disorders: No Hx Family Cancer: No Hx Family GI Disorders: No Hx Family Endocrine Disorder: No Hx Family Neuromuscular Disorders: No Hx Family HEENT Disorders: No Hx Family Autoimmune Disorders: No Medications and Allergies Diltiazem CD (24hr) [Cardizem CD] 120 mg PO DAILY #30 cap.er.24h 09/05/17 [Rx] 3 Allergy/AdvReac Type Severity Reaction Status Date / Time No Known Allergies Allergy Verified 06/13/15 22:46 All Systems Review: A 10-system review of systems was performed and is negative for pertinent findings except as documented above in the HPI. - Constitutional Constitutional: no fever(s), no frequent falls, no headache(s), no lethargy - Cardiovascular Cardiovascular: no dyspnea at rest, no dyspnea on exertion, no irregular heart rhythm, no radiating jaw, neck or arm pain - Neurological Neurological: no syncope Physical Examination Vital Signs, Last 4 Hours Temp Pulse Resp BP Pulse Ox 09/05/17 08:34 97.4 F L 80 17 121/82 96 General: Conversant, No Apparent Distress HEENT: Atraumatic, Normocephaly, Mucus Membranes Moist Neck: No JVD, Normal carotid pulses Cardiac: Normal S1 and S2, No Murmur, Other (Irregular rhythm) Lungs: Normal Breath Sounds, No Wheeze, Rales, Rhonchi Abdomen: Soft, Non-Tender Skin: No rashes noted on visualized skin Musculoskeletal: No Chest Wall Tenderness Extremities: No Clubbing, No Cyanosis, No Edema, Normal Pulses Results 09/05/17 05:42 09/05/17 05:42 Lab Results 09/05/17 09/05/17 05:42 05:42 WBC 7.1 Hgb 16.2 D Hct 46.7 Plt Count 186 Sodium 139 Potassium 3.8 Chloride 111 H Carbon Dioxide 28 BUN 9 Creatinine 0.81 Glucose 100 Calcium 8.5 L Consult Discharge Plan - Plan Referrals: Jasmin Zaragoza, PIPE [employer] SUPERVISOR MAINTENANCE [Primary Care Provider] - Prescriptions: Diltiazem CD (24hr) [Cardizem CD] 120 mg PO DAILY #30 cap.er.24h <Shelbie Mendoza - Last Filed: 09/05/17 19:51> Date of Encounter: 09/05/17 - Attending Attestation I examined this patient and my medical decision-making was reviewed with the Resident Physician. I agree with the documented findings, disposition and treatment plan as described except to the extent set forth below. 31 YOM with h/o PAF associated with previous syncope presents once again with PAF with RVR associated with TLOC ECHO reveals low nml EF without major valvular abnormalities was unable to take CCB after previous admission due to cost Failed to f/u with EP No family hx of syncope or SCD Plan CCB on discharge Tox screen (hx of polysubstance abuse) Coronary CTA to rule out anamolous coronaries Patient advised against driving and work (works at [employer]) Assessment and Plan Discussion w patient/family: The assessment and plan as outlined above was discussed with the patient and/or family members who expressed understanding and agreement. All questions were answered. Thank you for involving us in the care of your patient. Please call with any questions. History of Present Illness History of present illness: Mr. Torres is a 31 year old male All Systems Review: A 10-system review of systems was performed and is negative for pertinent findings except as documented above in the HPI. Results 09/05/17 05:42 09/05/17 05:42 Lab Results 09/05/17 09/05/17 05:42 05:42 WBC 7.1 Hgb 16.2 D Hct 46.7 Plt Count 186 Sodium 139 Potassium 3.8 Chloride 111 H Carbon Dioxide 28 BUN 9 Creatinine 0.81 Glucose 100 Calcium 8.5 L
--- NOTE | 2017-09-05 12:19 | Internal Med Progress Note ---
Date of Encounter: 09/05/17 Time of Encounter: 12:14 - Assessment and plan (1) Atrial fibrillation with RVR Current Visit: Yes Status: Acute Assessment and plan: Syncopal episode secondary to A. fib with RVR, noncompliance with treatment Continue Cardizem drip Cardiology recommendations appreciated Fall precautions No anticoagulation needed due to [id number] score of 0 (2) Syncope Current Visit: Yes Status: Acute Qualifiers: Syncope type: unspecified Qualified Code(s): R55 - Syncope and collapse (3) Methamphetamine abuse Current Visit: No Status: Chronic (4) Bipolar disorder Current Visit: No Status: Acute Qualifiers: Active/Remission status: currently active Current bipolar episode type: mixed Psychotic features: with psychotic features Qualified Code(s): F31.64 - Bipolar disorder, current episode mixed, severe, with psychotic features (5) Tobacco abuse Current Visit: No Status: Chronic Assessment and plan: Smoking cessation counseling, nicotine patch (6) Polycythemia Current Visit: Yes Status: Acute Assessment and plan: Likely secondary to tobacco - Subjective Interval history: Asymptomatic, no chest pain, no shortness of breath, no abdominal pain, no dysuria, no fevers or chills. No headache - Constitutional Vitals: Temp Pulse Resp BP Pulse Ox 97.4 F L 80 17 121/82 96 09/05/17 08:34 09/05/17 08:34 09/05/17 08:34 09/05/17 08:34 09/05/17 08:34 General appearance: Present: A&O X 3 - Head Head exam: Present: atraumatic, normocephalic - Eye Eye exam: Present: PERRL, conjuntiva pink, sclera anicteric Pupils: Present: PERRL - Neck Neck exam general surgery: Present: supple, trachea midline. Absent: lymphadenopathy - Respiratory Respiratory exam: Present: CTAB. Absent: accessory muscle use, rales, rhonchi, wheezes - Cardiovascular Cardiovascular exam: Present: RRR, +S1, +S2. Absent: diastolic murmur, gallop, rubs, systolic murmur - GI/Abdominal GI/Abdominal exam: Present: normal bowel sounds, soft, no peritoneal signs. Absent: distended, tenderness - Extremities Exam Extremities exam: Present: warm, radial pulses palpable and symmetrical. Absent : calf tenderness, cyanotic, pedal edema - Neurological Exam Neurological exam: Present: CN II-XII intact, oriented X3, no focal deficits. Absent: pronater drift, facial droop, speech deficit - Skin Skin exam: Present: dry, intact Internal Medicine: Result - Labs CBC & Chem 7: 09/05/17 05:42 09/05/17 05:42 Labs: Short CBC 09/05/17 Range/Units 05:42 WBC 7.1 (4.3-11.1) K/mcL Hgb 16.2 D (12.9-16.9) g/dL Hct 46.7 (37.5-50.1) % Plt Count 186 (140-400) K/mcL BMP 09/05/17 05:42 Sodium 139 Potassium 3.8 Chloride 111 H Carbon Dioxide 28 BUN 9 Creatinine 0.81 Glucose 100 Calcium 8.5 L - ABG Interpretation ABG results: PT/INR, D-dimer PT 11.0 Seconds (9.4-12.1) 09/04/17 19:15 Consult Discharge Plan - Plan Referrals: Jasmin Zaragoza, ACCOUNT ANALYST [Primary Care Provider] -
[2017-09-05 12:26] VITALS: BP 137/82
[2017-09-05] MEDS: 0.9 % Sodium Chloride 1,000 ML IVC SCH ×2 (12:39)
[2017-09-05] MEDS ORDERED: Aspirin 81 MG TAB.CHEW PO SCH (14:00)
--- NOTE | 2017-09-05 14:23 | Discharge Summary ---
Date of Encounter: 09/05/17 Time of Encounter: 14:22 - Discharge Diagnosis (1) Atrial fibrillation with RVR Priority: Primary Status: Acute Comments: Syncopal episode secondary to A. fib with RVR, noncompliance with treatment (2) Syncope Priority: Secondary Status: Acute Qualifiers: Syncope type: unspecified Qualified Code(s): R55 - Syncope and collapse (3) Methamphetamine abuse Priority: Secondary Status: Chronic (4) Bipolar disorder Priority: Secondary Status: Acute Qualifiers: Active/Remission status: currently active Current bipolar episode type: mixed Psychotic features: with psychotic features Qualified Code(s): F31.64 - Bipolar disorder, current episode mixed, severe, with psychotic features (5) Tobacco abuse Priority: Secondary Status: Chronic (6) Polycythemia Priority: Secondary Status: Acute - Discharge Medications Prescriptions: Diltiazem CD (24hr) [Cardizem CD] 120 mg PO DAILY #30 cap.er.24h Home Medications: Diltiazem CD (24hr) [Cardizem CD] 120 mg PO DAILY #30 cap.er.24h 09/05/17 [Rx] Allergies/Adverse Reactions: 3 Allergy/AdvReac Type Severity Reaction Status Date / Time No Known Allergies Allergy Verified 06/13/15 22:46 Date of admission: 09/04/17 22:06 Primary care physician: Jasmin Zaragoza CNP Consults: 09/05/17 07:10 Consult to Hand Profiler [CONS] Routine Reason for SW Consult: help obtaining home meds - Patient Status Disposition: Left Against Medical Advice Condition: Fair - Discharge Instructions Follow Up With: Jasmin Zaragoza CNP [Primary Care Provider] - Hospital course: Mr. Torres is a 31 year old male with a past medical history of, tobacco use, methamphetamine use, GERD, prior syncopal episode due to atrial fibrillation with rapid ventricular response. He was discharged from this hospital on 2016 where he had a similar event. Back then the patient was discharged on Cardizem but unfortunately he was not able to afford it as he lost his insurance. Since then, he has been feeling fine up until 3 days ago when he experienced some elevated heart rate. Admitted today at 1:30 PM after urinating , he passed out in the heat his head and his right rib cage. Also his corrupt his left knee and does not know for how long he was out. She woke up in sweat complaining of right-sided chest pain 6 out of 10 in intensity and palpitations. Hemoglobin is 18 hematocrit 50.[address] scan of the head did not show any intracranial hemorrhage, chest x-ray is unremarkable. The ER physician spoke with Dr. Rea who recommended admission. He was started on a Cardizem drip and was given a dose of metoprolol IV. His heart rate was 120, his initial blood pressure was 152/97 and dropped momentarily down to 99/77 and normalized afterwards. Currently he was asymptomatic. Mentions that he drank 2 shots of alcohol the day of admission. The patient was stable on a Cardizem drip, he was evaluated by cardiology, he was told that he needed to see Dr. Rea, unfortunately Dr. Rea is not available. Apparently the patient became upset and left AGAINST MEDICAL ADVICE before I could talk to him again. I spoke with Dr. Mendoza who recommended to discharge the patient on Cardizem in order to follow-up with Dr. Rea for a possible ablation, until then, he was advised not to drive or to work due to his recurrent syncopal episodes. When I arrived to the floor, unfortunately I did not find the patient as he left already. During his hospitalization, he refused to give a urine sample in order to do a urine tox screen. - Time Spent with Patient Total time spent providing and/or coordinating discharge services: Greater than 30 minutes - Constitutional Vitals: Temp Pulse Resp BP Pulse Ox 97.7 F 71 16 137/82 97 09/05/17 12:19 09/05/17 12:19 09/05/17 12:19 09/05/17 12:19 09/05/17 12:19 General appearance: Present: A&O X 3 - Head Head exam: Present: atraumatic, normocephalic - Eye Eye exam: Present: PERRL, conjuntiva pink, sclera anicteric Pupils: Present: PERRL - Neck Neck exam general surgery: Present: supple, trachea midline. Absent: lymphadenopathy - Respiratory Respiratory exam: Present: CTAB. Absent: accessory muscle use, rales, rhonchi, wheezes - Cardiovascular Cardiovascular exam: Present: RRR, +S1, +S2. Absent: diastolic murmur, gallop, rubs, systolic murmur - GI/Abdominal GI/Abdominal exam: Present: normal bowel sounds, soft, no peritoneal signs. Absent: distended, tenderness - Extremities Exam Extremities exam: Present: warm, radial pulses palpable and symmetrical. Absent : calf tenderness, cyanotic, pedal edema - Neurological Exam Neurological exam: Present: CN II-XII intact, oriented X3, no focal deficits. Absent: pronater drift, facial droop, speech deficit - Skin Skin exam: Present: dry, intact
--- NOTE | 2017-09-08 15:50 | Electrocardiograph Report ---
[address] [address] Test Date: 2017-09-04 Pat Name: Ayaan Torres Department: 104 Room: 2A63 Gender: M Public Health Staff Nurse: YOVANA : 1985 Requested By: Krystyna Guardado Order Number: [id number] Reading MD: Sheela Andrade Measurements Intervals [place] Rate: 128 P: AL: 0 QRS: 7 QRSD: 92 T: 58 QT: 282 QTc: 358 Interpretive Statements ATRIAL FIBRILLATION WITH RAPID VENTRICULAR RESPONSE WITH ABERRANT CONDUCTION OR VENTRICULAR PREMATURE COMPLEXES MINIMAL VOLTAGE CRITERIA FOR LVH, CONSIDER NORMAL VARIANT NONSPECIFIC T-WAVE ABNORMALITY ABNORMAL RHYTHM ECG Electronically Signed On 09-08-2017 15:49:40 EST by Sheela Andrade
== END 2017-09-05 13:40 | disposition left against medical advice (07) ==
LOC: 2ANU 18:36 → EMEROO 18:36 → SUATTDRO 22:06 → 2ANU 22:48
PROVIDERS: ADMIT Internal Medicine; ATTEND Internal Medicine